=== PATIENT | female | born 1995 | race Two or more races ===

== ENCOUNTER → 2020-11-25 | Outpatient (CLI) | payer OTHER ==
[~2020-11-25] MED LIST: METO5TAB55 PO; NITR100C62 PO
[2020-11-25 13:38] LABS: THYROID STIM HORMONE (TSH) 0.038 uIU/mL (0.358-3.74)
[2020-11-25 13:49] LABS: BASO % 0 % (0-3); EOS # 0.1 x10^3/uL (0.0-0.7); EOS % 1 % (0-3); HEMATOCRIT 37.8 % (36.0-47.0); HEMOGLOBIN 12.9 g/dL (12.0-15.5); LYMPH # 1.6 x10^3/uL (1.0-4.8); LYMPH % 15 % (24-48); MEAN CORPUSCULAR HEMOGLOBIN 29 pg (25-35); MEAN CORPUSCULAR HGB CONC 34 g/dL (31-37); MEAN CORPUSCULAR VOLUME 84 fL (79-100); MONO # 0.6 x10^3/uL (0.0-1.1); MONO % 6 % (0-9); NEUT # 8.2 x10^3/uL (1.8-7.7); NEUT % 77 % (31-73); PLATELET COUNT 282 x10^3/uL (140-400); RED BLOOD COUNT 4.48 x10^6/uL (3.50-5.40); RED CELL DISTRIBUTION WIDTH 14.2 % (11.5-14.5); WHITE BLOOD COUNT 10.7 x10^3/uL (4.0-11.0)
[2020-11-26 14:25] LABS: FREE T4 1.3 ng/dL (0.76-1.46)
[2020-11-26 15:15] LABS: RUBELLA IGG ANTIBODY <0.90 index (Immune >0.99)
== END ==
LOC: LAB 12:28
PROVIDERS: ATTEND Obstetrics & Gynecology
DX: O00.01 Abdominal pregnancy with intrauterine pregnancy (principal)
CPT/HCPCS: 36415; 81220; 84439; 84443; 85025; 86592; 86703; 86762; 86787; 86803; 86850; 86900; 86901; 87340

== ENCOUNTER → 2020-12-04 | Outpatient (CLI) | payer OTHER ==
--- NOTE | 2020-12-04 16:05 | RAD ---
EXAM: Obstetrics sonogram. HISTORY: Viability scan. TECHNIQUE: Sonographic imaging of a gravid uterus was performed. COMPARISON: None. FINDINGS: The uterus measures 0.1 x 9.3 x 7.4 cm. There is a single intrauterine gestational sac with pole and yolk sac. The crown-rump is 3.14 cm, corresponding with a gestational age of 10 weeks and 0 days. There is a normal heart rate of 169 bpm. The estimated due date is 07/02/2021. The gestational sac is normal in configuration and location. The right ovary is not seen. The left o vary is normal in size and demonstrate normal blood flow. There is a 1.2 cm left ovarian follicle. Th ere is no pelvic free fluid. IMPRESSION: 1. Single imaging fetus with normal heart rate and gestational age of 10 weeks and 0 days. 2. 1.2 cm left ovarian follicle. 3. Obscured right ovary. Electronically signed by: Sunshine Frederick MD (12/04/2020 4:03 PM) [id number]
== END ==
LOC: US 15:35
PROVIDERS: ATTEND Obstetrics & Gynecology
DX: O34.81 Maternal care for other abnormalities of pelvic organs, first trimester (principal); N83.02 Follicular cyst of left ovary; Z3A.10 10 weeks gestation of pregnancy
CPT/HCPCS: 76801

== ENCOUNTER 2020-12-12 16:41 | Emergency (ER) | payer OTHER ==
[~2020-12-12] VITALS: Ht 162.6 cm; Wt 62.0 kg
[2020-12-12 18:00] VITALS: BP 139/91
[2020-12-12] MEDS ORDERED: METOCLOPRAMIDE HCL 10 MG/2 ML VIAL. IVP ONE (18:30)
[2020-12-12] MEDS ORDERED: IV NORMAL SALINE 1000ML BAG 1,000 ML IV ONE ×2 (18:30→20:30)
[2020-12-12 18:32] LABS: BASO % 0 % (0-3); EOS # 0.1 x10^3/uL (0.0-0.7); EOS % 1 % (0-3); HEMATOCRIT 40.6 % (36.0-47.0); HEMOGLOBIN 13.9 g/dL (12.0-15.5); LYMPH # 1.9 x10^3/uL (1.0-4.8); LYMPH % 16 % (24-48); MEAN CORPUSCULAR HEMOGLOBIN 29 pg (25-35); MEAN CORPUSCULAR HGB CONC 34 g/dL (31-37); MEAN CORPUSCULAR VOLUME 84 fL (79-100); MONO # 0.6 x10^3/uL (0.0-1.1); MONO % 5 % (0-9); NEUT # 9.2 x10^3/uL (1.8-7.7); NEUT % 78 % (31-73); PLATELET COUNT 277 x10^3/uL (140-400); RED BLOOD COUNT 4.86 x10^6/uL (3.50-5.40); RED CELL DISTRIBUTION WIDTH 14.1 % (11.5-14.5); WHITE BLOOD COUNT 11.8 x10^3/uL (4.0-11.0)
--- NOTE | 2020-12-12 18:47 | PHYS DOC ---
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 Patient states she has been nauseous her entire . Patient states the last 2 days increased episodes of nausea and vomiting. Patient states she is having difficulty keeping things down. Patient has been prescribed promethazine by her HOSPITAL ATTENDANT but has not been taking due to the medicine making the patient too drowsy. Patient denies any as sociated abdominal discomfort she denies any urinary frequency urgency pelvic pain or vaginal bleeding. Patient states she tried to call her HOSPITAL ATTENDANT for different medications but call was not returned. Review of Systems: Review of Systems: Review of systems: Constitutional symptoms- No fever, no chills. Eyes- No Discharge, No Visual Loss Respiratory symptoms- No shortness of breath, No wheezing, No Dyspnea on Exertion Cardiovascular Systems; No chest pain, No Palpitations, No syncope Gastrointestinal symptoms: NO abdominal pain, Positive nausea, Positive vo miting no diarrhea. Genitourinary symptoms: No dysuria. Positive Musculoskeletal symptoms: No back pain No extremity pain. NEUROLOGICAL Symptoms: No headache, no generalized weakness; No focal Weakness Skin: No rash. Heart Score: C/O Chest Pain: N/A Risk Factors: Risk Factors: DM, Current or recent (<one month) smoker, HTN, HLP, family history of CAD, obesity. Risk Scores: Score 0 - 3: 2.5% MACE over next 6 weeks - Discharge Home Score 4 - 6: 20.3% MACE over next 6 weeks - Admit for Clinical Observation Score 7 - 10: 72.7% MACE over next 6 weeks - Early Invasive Strategies Current Medications: Current Medications Medications (Trade) Dose Ordered Sig/Shanell Start Time Stop Time Status Last Admin Dose Admin Metoclopramide HCl (Reglan Vial) 10 mg 1X ONCE 12/12/20 18:30 12/12/20 18:31 DC 12/12/20 18:31 10 MG Sodium Chloride 1,000 ml @ 1,000 mls/hr 1X ONCE 12/12/20 18:30 12/12/20 19:29 12/12/20 18:27 1,000 MLS/HR Allergies: Allergies: Allergies Coded Allergies Type Severity Reaction Last Updated Verified No Known Drug Allergies 05/29/13 No Physical Exam: PE: General: alert, no acute distress. Skin: warm, dry and intact, no erythema, no rash. HENT: bilateral external ears normal, oropharynx moist, nose normal. Head:: Normocephalic, atraumatic. Neck: Trachea midline. Eyes: EOMI, Normal conjunctiva, No drainage CARDIOVASCULAR: Regular rate and rhythm RESPIRATORY: No respiratory distress Back: Full range of motion. MUSCULOSKELETAL: Full range of motion of bilateral upper and lower extremities. GASTROINTESTINAL: Abdomen soft without rebound or guarding. NEUROLOGICAL: Alert and noted to person, place and time. No neurological deficits observed Psychiatric: Cooperative. Normal judgment Current Patient Data: Labs: Laboratory Tests Test 12/12/20 18:20 White Blood Count 11.8 x10^3/uL (4.0-11.0) H Red Blood Count 4.86 x10^6/uL (3.50-5.40) Hemoglobin 13.9 g/dL (12.0-15.5) Hematocrit 40.6 % (36.0-47.0) Mean Corpuscular Volume 84 fL (79-100) Mean Corpuscular Hemoglobin 29 pg (25-35) Mean Corpuscular Hemoglobin Concent 34 g/dL (31-37) Red Cell Distribution Width 14.1 % (11.5-14.5) Platelet Count 277 x10^3/uL (140-400) Neutrophils (%) (Auto) 78 % (31-73) H Lymphocytes (%) (Auto) 16 % (24-48) L Monocytes (%) (Auto) 5 % (0-9) Eosinophils (%) (Auto) 1 % (0-3) Basophils (%) (Auto) 0 % (0-3) Neutrophils # (Auto) 9.2 x10^3/uL (1.8-7.7) H Lymphocytes # (Auto) 1.9 x10^3/uL (1.0-4.8) Monocytes # (Auto) 0.6 x10^3/uL (0.0-1.1) Eosinophils # (Auto) 0.1 x10^3/uL (0.0-0.7) Basophils # (Auto) 0.0 x10^3/uL (0.0-0.2) Laboratory Tests 12/12/20 18:20 Vital Signs: Vital Signs Date Time Temp Pulse Resp B/P (MAP) Pulse Ox O2 Delivery O2 Flow Rate FiO2 12/12/20 18:00 98.9 90 12 139/91 98 Room Air 98.9 EKG: EKG: [] Radiology/Procedures: Radiology/Procedures: [] Course & Med Decision Making: Course & Med Decision Making Pertinent Labs and Imaging studies reviewed. (See chart for details) []Treated with IV fluids and Reglan. UA positive for LE and WBC-- Rx macrobid. Rx Reglan. Advised could cut in half promethazine. Follow up with Dr Hicks. Cal Disclaimer: Cal Disclaimer: This electronic medical record was generated, in whole or in part, using a voice recognition dictation system. Departure Departure Impression: Primary Impression: Hyperemesis gravidarum Additional Impression: Urinary tract infection Disposition: HOME / SELF CARE / HOMELESS Condition: STABLE Referrals: NON,STAFF (PCP) Patient Instructions: Hyperemesis Gravidarum, Urinary Tract Infection Scripts Nitrofurantoin Monohyd/M-Cryst (MACROBID 100 MG CAPSULE) 100 Mg Capsule 1 CAP PO BID for 5 Days, #10 CAP 0 Refills Prov: MIKE KUHN DO 12/12/20 Metoclopramide Hcl (REGLAN) 5 Mg Tablet 1 TAB PO TID for 20 Days, #60 TAB 0 Refills 1 hour prior to procedure Prov: MIKE KUHN DO 12/12/20 MIKE KUHN DO Dec 12, 2020 18:47
[2020-12-12 18:54] LABS: CALCIUM 9.8 mg/dL (8.5-10.1); CREATININE 0.7 mg/dL (0.6-1.0); GFR 103.7; POTASSIUM 3.9 mmol/L (3.5-5.1)
[2020-12-12 19:01] LABS: ALBUMIN 3.9 g/dL (3.4-5.0); ALBUMIN/GLOBULIN RATIO 0.9 (1.0-1.7); TOTAL BILIRUBIN 0.4 mg/dL (0.2-1.0); TOTAL PROTEIN 8.4 g/dL (6.4-8.2)
[2020-12-12 20:56] LABS: BILIRUBIN,URINE SMALL (NEG); CLARITY,URINE CLEAR; COLOR,URINE ORANGE; NITRITE,URINE NEGATIVE (NEG); PH,URINE 5.5 (<5.0-8.0); PROTEIN,URINE NEGATIVE (NEG-TRACE)
[2020-12-12 21:03] LABS: BACTERIA,URINE FEW /HPF (0-FEW)
[2020-12-12 21:04] LABS: RBC,URINE 0 /HPF (0-2)
[2020-12-12] MEDS ORDERED: NITR100C62 PO (21:11)
[2020-12-12] MEDS ORDERED: METO5TAB55 PO (21:11)
== END 2020-12-12 21:22 | disposition home or self-care (01) ==
LOC: ER 16:41
DX: O21.0 Mild hyperemesis gravidarum (principal); O23.41 Unspecified infection of urinary tract in pregnancy, first trimester; O99.511 Diseases of the respiratory system complicating pregnancy, first trimester; J45.909 Unspecified asthma, uncomplicated; Z3A.12 12 weeks gestation of pregnancy
CPT/HCPCS: 36415; 80053; 81001; 85025; 87086; 96361; 96374; 99283; J2765; J7030; 87077

== ENCOUNTER → 2021-02-17 | Outpatient (CLI) | payer OTHER ==
--- NOTE | 2021-02-17 13:55 | RAD ---
OB ultrasound greater than 14 weeks 02/18/2020 Clinical History: survey. Technique: A real-time ultrasound examination of the gravid uterus was performed. Multiple images wer e obtained. Findings: Comparison study is dated 12/04/2020. There is a single living IUP. The fetus is in a cephalic position. cardiac and somatic activit y is seen. The heart rate is 149. beats per minutes. The maternal cervix is closed. It measures 4.6 cm in length. The placenta is post erior. No abnormality is seen. The amniotic fluid volume is within normal limits. Neither maternal ov rex is visualized. The following measurements were obtained: BPD 4.86cm 20 weeks 5 days HC 18.31 cm 20weeks 5 days AC 15.13 cm 20weeks 2 days FL 3.46 cm 20 weeks 6 days The estimated gestational age by ultrasound is 20 weeks 5 days plus or minus a standard deviation of 10 days. The estimated date of delivery by ultrasound on today's study is 07/02/2021. Since the previou s examination has been appropriate interval growth. No abnormality is seen. Specifically the stomach, bladder, kidneys, 3 vessel cord and cor d insertion, four-chamber heart, cisterna magna, cerebellum, nose/mouth, spine and extremities are well-visualized and within normal limits. Impression: Single living IUP with an estimated gestational age by ultrasound of 20 weeks5 days +/- a standard deviation of 10 days. Since the previous examination there has been appropriate interval fe christina growth. Electronically signed by: Apollo Taylor MD (02/17/2021 1:52 PM) [id number]
== END ==
LOC: US 09:47
PROVIDERS: ATTEND Obstetrics & Gynecology
DX: O00.01 Abdominal pregnancy with intrauterine pregnancy (principal); Z3A.20 20 weeks gestation of pregnancy
CPT/HCPCS: 76805

== ENCOUNTER 2021-03-03 18:14 | Observation (INO) | payer OTHER | END 2021-03-03 19:00 | disposition home or self-care (01) | LOC: 3 SO LND 18:14 | PROVIDERS: ADMIT Obstetrics & Gynecology; ATTEND Obstetrics & Gynecology | DX: O36.8120 Decreased fetal movements, second trimester, not applicable or unspecified (principal); Z3A.22 22 weeks gestation of pregnancy | CPT/HCPCS: 59025; G0378; G0379 ==

== ENCOUNTER → 2021-03-17 | Outpatient (CLI) | payer OTHER ==
[2021-03-17 12:35] LABS: HEMATOCRIT 37.8 % (36.0-47.0); HEMOGLOBIN 12.6 g/dL (12.0-15.5); RED BLOOD COUNT 4.32 x10^6/uL (3.50-5.40); WHITE BLOOD COUNT 12.5 x10^3/uL (4.0-11.0)
== END ==
LOC: LAB 11:00
PROVIDERS: ATTEND Obstetrics & Gynecology
DX: O09.72 Supervision of high risk pregnancy due to social problems, second trimester (principal); Z3A.00 Weeks of gestation of pregnancy not specified
CPT/HCPCS: 36415; 82950; 85027